=== PATIENT | female | born 1960 | race Caucasian/White ===

== ENCOUNTER → 2016-12-05 | Outpatient (CLI) | payer BC ==
[2016-12-05 10:18] LABS: ALT 37 U/L (9-52); AST 30 U/L (14-36); Alkaline Phosphatase 64 U/L (38-126); Anion Gap 11 mmol/L; Blood Urea Nitrogen 29 mg/dL (7-17); Calcium 9.9 mg/dL (8.4-10.2); Carbon Dioxide 27 mmol/L (22-30); Chloride 104 mmol/L (98-107); Cholesterol 143 mg/dL (<200); Glucose 109 mg/dL (74-99); HDL Cholesterol 34 mg/dL (40-60); Non-African American GFR(MDRD) >60 (>60 ml/min/1.73 sqM); Potassium 4.7 mmol/L (3.5-5.1); Sodium 142 mmol/L (137-145); Total Bilirubin 0.8 mg/dL (0.2-1.3); Total Protein 7.2 g/dL (6.3-8.2); Triglycerides 247 mg/dL (<150)
== END | disposition home or self-care (01) ==
LOC: LABWHC1 08:27
PROVIDERS: ATTEND Internal Medicine Endocrinology, Diabetes & Metabolism
DX: E11.65 Type 2 diabetes mellitus with hyperglycemia (principal); E03.8 Other specified hypothyroidism
CPT/HCPCS: 36415; 80053; 80061; 82043; 84443

== ENCOUNTER 2017-05-25 14:17 | Emergency (ER) | payer BC ==
--- NOTE | 2017-05-25 14:47 | ED ---
General Adult HPI - General Chief complaint: Nausea/Vomiting/Diarrhea Stated complaint: Abd Pain Time Seen by Provider: 05/25/17 14:32 Source: patient, family, RN notes reviewed Mode of arrival: ambulatory Limitations: no limitations - History of Present Illness Initial comments: Chief complaint and history of present illness is a 57-year-old female here with her . He reports reports for the past 3 days she's had diarrhea just running through her. Denies any pain. No nausea no vomiting. - Related Data Home Medications Medication Instructions Recorded Confirmed Calcium Carbonate/Vitamin D3 1 tab PO DAILY 05/25/17 05/25/17 [Calcium 500-Vit D3 200 Tablet] Canagliflozin [Invokana] 300 mg PO DAILY 05/25/17 05/25/17 Fenofibric Acid (Choline) 135 mg PO HS 05/25/17 05/25/17 [Trilipix] Glimepiride [Amaryl] 2 mg PO AC-BRKFST 05/25/17 05/25/17 Insulin Glargine,Hum.rec.anlog 45 unit SQ BID 05/25/17 05/25/17 [Lantus Solostar] Levothyroxine Sodium [Synthroid] 75 mcg PO DAILY 05/25/17 05/25/17 Lisinopril-Hctz 20-25 mg 1 tab PO DAILY 05/25/17 05/25/17 [Zestoretic 20-25] Lutein 20 mg PO DAILY 05/25/17 05/25/17 metFORMIN HCL [metFORMIN HCL ER] 500 mg PO BID 05/25/17 05/25/17 Previous Rx's Medication Instructions Recorded Ciprofloxacin HCl [Cipro] 500 mg PO Q12HR #10 tablet 05/25/17 Allergies Allergy/AdvReac Type Severity Reaction Status Date / Time erythromycin base Allergy Unknown Verified 05/25/17 14:53 influenza virus vaccine, Allergy Rash/Hives Verified 05/25/17 14:53 specific Penicillins Allergy Unknown Verified 05/25/17 14:53 Sulfa (Sulfonamide Allergy Unknown Verified 05/25/17 14:53 Antibiotics) garlic AdvReac Nausea & Verified 05/25/17 14:53 Vomiting & Diarrhea Review of Systems ROS Statement: Those systems with pertinent positive or pertinent negative responses have been documented in the HPI. Review of systems no headache or chest pain or shortness of breath no jugular problems GI problems include very frequent foul-smelling loose stool. No neuro deficits. All systems are reviewed. Past medical problems insulin-dependent diabetes mellitus, hyperlipidemia, hypertension and hypothyroidism. Surgeries include 1 , cholecystectomy, tonsillectomy bilateral carpal tunnel surgery. Family history an uncle with lung cancer. The patient has ALLERGIES to erythromycin base. Also ALLERGIES to influenza virus vaccine. She thinks she may be ALLERGIC to sulfa. States she is ALLERGIC to penicillin though she' s had it without reaction. Also ALLERGIC to garlic. The patient quit smoking 8 years ago denies alcohol use ROS Other: All systems not noted in ROS Statement are negative. Past Medical History Past Medical History: Diabetes Mellitus, Hyperlipidemia, Hypertension, Thyroid Disorder History of Any Multi-Drug Resistant Organisms: None Reported Past Surgical History: Section, Cholecystectomy, Tonsillectomy Additional Past Surgical History / Comment(s): bilateral carpel tunnel Past Psychological History: No Psychological Hx Reported Smoking Status: Never smoker Past Alcohol Use History: None Reported Past Drug Use History: None Reported General Exam - General Exam Comments Initial Comments: General: The patient is awake and alert, in no distress, and does not appear acutely ill. Here with a chief complaint of foul-smelling loose stool for 3 days nonstop. Vital signs temperature 98.4 pulse 102 respiratory rate 18 pulse ox 96 % room air blood pressure 115/74 Eye: Pupils are equal, round and reactive to light, extra-ocular movements are intact ; there is normal conjunctiva bilaterally. No signs of icterus. Ears, nose, mouth and throat: There are moist mucous membranes and no oral lesions. Neck: The neck is supple, there is no tenderness . Cardiovascular: There is a regular rate and rhythm. No murmur, rub or gallop is appreciated. Respiratory: Lungs are clear to auscultation, respirations are non-labored, breath sounds are equal. No wheezes, stridor, rales, or rhonchi. Gastrointestinal: Soft, non-distended, non-tender abdomen without masses or organomegaly noted. There is no rebound or guarding present. No CVA tenderness. Active bowel sounds , runny frequent loose stools, foul-smelling. Back: There is no tenderness to palpation in the midline. There is no obvious deformity. No rashes noted. Musculoskeletal: Normal ROM, no tenderness, Neurological: No complaint of any numbness tingling or balance problems. Skin: No rashes noted. Psychiatric: Cooperative, appropriate mood & affect, Limitations: no limitations Course Vital Signs 05/25/17 05/25/17 05/25/17 14:21 15:24 16:24 Temperature 98.4 F 98.1 F Pulse Rate 102 H 105 H Respiratory 18 18 18 Rate Blood Pressure 115/74 111/69 O2 Sat by Pulse 96 95 Oximetry Medical Decision Making - Medical Decision Making Medical decision-making. The first lab back is stool guaiac which was reported to be positive. Patient's C. diff was negative. The patient did not want an IV ,she was able to keep with oral fluids. She'll be discharged home on Pepto-Bismol and Cipro 500 twice a day for 5 days. advised increase her fluids encouraged to drink Gatorade type preparations. Use strict handling. Call for final lab results concerning the type of diarrhea and infection and she may have had. - Lab Data Lab Results 05/25/17 05/25/17 Range/Units 14:35 14:44 Stool Occult Blood Positive H (Negative) C. difficile (EIA) Intrp Negative (Negative) Disposition Clinical Impression: Infectious diarrhea in adult patient Disposition: HOME SELF-CARE Condition: Stable Instructions: Acute Diarrhea (ED) Additional Instructions: increase fluids. Use Gatorade. Take Cipro 500 twice a day for 5 days. Use Pepto-Bismol. Return emergency room or follow-up with family physician as needed Prescriptions: Ciprofloxacin HCl [Cipro] 500 mg PO Q12HR #10 tablet Referrals: Timbo Vaca DO [Primary Care Provider] - 1-2 days Time of Disposition: 17:13
[2017-05-25] MEDS ORDERED: CIPROFLOXACIN HCL 500 MG TAB PO STA (17:11)
[2017-05-25 17:29] VITALS: BP 117/62; PULSE 101; RESP 16; TEMP 98.2
[2017-05-25] MEDS ORDERED: BISMUTH SUBSALICYLATE 4,192 MG/240 ML BOTTLE PO SCH (17:30)
== END 2017-05-25 17:25 | disposition home or self-care (01) ==
LOC: EC 14:17
DX: A09 Infectious gastroenteritis and colitis, unspecified (principal); E11.9 Type 2 diabetes mellitus without complications; E78.5 Hyperlipidemia, unspecified; I10 Essential (primary) hypertension; E07.9 Disorder of thyroid, unspecified; Z79.4 Long term (current) use of insulin; Z79.899 Other long term (current) drug therapy; Z88.0 Allergy status to penicillin; Z88.1 Allergy status to other antibiotic agents; Z88.2 Allergy status to sulfonamides; Z91.018 Allergy to other foods; Z88.7 Allergy status to serum and vaccine; Z90.49 Acquired absence of other specified parts of digestive tract; Z53.29 Procedure and treatment not carried out because of patient's decision for other reasons
CPT/HCPCS: 36415; 82272; 87045; 87046; 87324; 99284

== ENCOUNTER 2017-05-30 09:21 | Emergency (ER) | payer BC ==
[2017-05-30] MEDS ORDERED: SODIUM CHLORIDE 0.9% 1,000 ML IV STA (09:40)
[2017-05-30] MEDS ORDERED: HYDROmorphone 0.5 MG/0.5 ML SYRINGE IVP STA ×2 (10:26→12:16)
[2017-05-30] MEDS ORDERED: RX INFO: IV CONTRAST WAS GIVEN 1 EACH MISC MISCELLANE PRN (10:26)
[2017-05-30] MEDS ORDERED: ONDANSETRON 4 MG/2 ML VIAL IVP STA (10:26)
[2017-05-30 10:29] LABS: Basophils # (A) 0.1 k/uL (0-0.2); Basophils % (A) 1 %; CH 29.9; CHCM 35.5; Eosinophils # (A) 1.2 k/uL (0-0.7); Eosinophils % (A) 12 %; HCT 45.3 % (34.0-46.0); HDW 2.97; HGB 15.4 gm/dL (11.4-16.0); Luc # (Auto) 0.28; Luc % (Auto) 3; Lymphocytes # (A) 2.3 k/uL (1.0-4.8); Lymphocytes % (A) 22 %; MCH 28.7 pg (25.0-35.0); MCHC 33.9 g/dL (31.0-37.0); MCV 84.5 fL (80.0-100.0); Mean Platelet Volume 7.2; Monocytes # (A) 0.5 k/uL (0-1.0); Monocytes % (A) 5 %; Neutrophils % (A) 58 %; RBC 5.37 m/uL (3.80-5.40); RDW 12.8 % (11.5-15.5); WBC 10.4 k/uL (3.8-10.6); WBC (Perox) 10.09
[2017-05-30 10:36] LABS: Appearance,Urine Turbid (Clear); Bilirubin,Urine Negative (Negative); Glucose,Urine (UA) 4+ (Negative); Ketones,Urine Negative (Negative); Leukocyte Esterase,Urine Moderate (Negative); Mucus,Urine Rare /hpf; Nitrite,Urine Negative (Negative); PH, Urine 5.5 (5.0-8.0); Particle Count 3466; Protein,Urine Negative (Negative); RBC,Urine 4 /hpf (0-5); Specific Gravity,Urine 1.022 (1.001-1.035); Squamous Epithelial Cell,Urine 2 /hpf (0-4); UA Billing (MACRO vs. MICRO) MICRO; Urobilinogen,Urine <2.0 mg/dL (<2.0); WBC,Urine 12 /hpf (0-5)
--- NOTE | 2017-05-30 10:37 | ED ---
Abdominal Pain HPI - General Chief Complaint: Abdominal Pain Stated Complaint: LRQ pain radiating to back Time Seen by Provider: 05/30/17 09:39 Source: patient, RN notes reviewed Mode of arrival: ambulatory Limitations: no limitations - History of Present Illness Initial Comments: This a 57-year-old female presents emergency department chief complaint right- sided abdominal pain. Patient states that she's been here several times for this. Patient states his been dealing with diarrhea for approximately 9-10 days. Patient states that she was admitted to the hospital the able to perform some stool studies and give her Questran. Patient states that her stool is slowing down and states that she is nonverbal worsening pain in the right side. She states the pain is unbearable worsen she's ever experience. Patient states she's had a prior cholecystectomy 9 years ago. Patient denies any dysuria hematuria. Patient states that she's had no melena or hematochezia. Denies any nausea vomiting diarrhea constipation. - Related Data Home Medications Medication Instructions Recorded Confirmed Calcium Carbonate/Vitamin D3 1 tab PO DAILY 05/25/17 05/30/17 [Calcium 500-Vit D3 200 Tablet] Canagliflozin [Invokana] 300 mg PO QAM 05/25/17 05/30/17 Fenofibric Acid (Choline) 135 mg PO HS 05/25/17 05/30/17 [Trilipix] Insulin Glargine,Hum.rec.anlog 35 unit SQ HS 05/25/17 05/30/17 [Lantus Solostar] Levothyroxine Sodium [Synthroid] 75 mcg PO HS 05/25/17 05/30/17 Lisinopril-Hctz 20-25 mg 1 tab PO DAILY 05/25/17 05/30/17 [Zestoretic 20-25] Lutein 20 mg PO DAILY 05/25/17 05/30/17 metFORMIN HCL [metFORMIN HCL ER] 500 mg PO QAM 05/25/17 05/30/17 Glimepiride [Amaryl] 2 mg PO AC-BRKFST 05/30/17 05/30/17 Previous Rx's Medication Instructions Recorded Ciprofloxacin HCl [Cipro] 500 mg PO Q12HR #10 tablet 05/25/17 Cholestyramine (with Sugar) 4 gm PO BID #30 packet 05/28/17 [Questran] Peg 3350-Na Sulf,Bicarb,Cl/KCl 4,000 ml PO DIRECTED #1 bottle 05/28/17 [Golytely Lavage] traMADol HCl [Ultram] 50 mg PO Q6H PRN #20 tab 05/30/17 Allergies Allergy/AdvReac Type Severity Reaction Status Date / Time erythromycin base Allergy Unknown Verified 05/30/17 09:44 influenza virus vaccine, Allergy Rash/Hives Verified 05/30/17 09:44 specific Penicillins Allergy Unknown Verified 05/30/17 09:44 Sulfa (Sulfonamide Allergy Unknown Verified 05/30/17 09:44 Antibiotics) garlic AdvReac Nausea & Verified 05/30/17 09:44 Vomiting & Diarrhea Review of Systems ROS Statement: Those systems with pertinent positive or pertinent negative responses have been documented in the HPI. ROS Other: All systems not noted in ROS Statement are negative. Past Medical History Past Medical History: Diabetes Mellitus, Hyperlipidemia, Hypertension, Thyroid Disorder Additional Past Medical History / Comment(s): pancreatitis History of Any Multi-Drug Resistant Organisms: None Reported Past Surgical History: Section, Cholecystectomy, Tonsillectomy Additional Past Surgical History / Comment(s): bilateral carpel tunnel Past Anesthesia/Blood Transfusion Reactions: No Reported Reaction Past Psychological History: No Psychological Hx Reported Smoking Status: Former smoker Past Alcohol Use History: None Reported Past Drug Use History: None Reported - Past Family History Father Family Medical History: Congestive Heart Failure (CHF), Diabetes Mellitus Additional Family Medical History / Comment(s): Father has history of diabetes type 2 and hypertension. Mother Family Medical History: Hyperlipidemia, Hypertension Additional Family Medical History / Comment(s): Mother has history of diabetes mellitus type 2 and hyperlipidemia. Brother(s) Additional Family Medical History / Comment(s): Patient is a total of 3 brothers all tree diabetic. 2 brothers are lactose intolerant. Patient does not have any sisters. Patient has one daughter status post cholecystectomy. General Exam Limitations: no limitations General appearance: alert, in no apparent distress Neck exam: Present: normal inspection. Absent: tenderness, meningismus, lymphadenopathy Respiratory exam: Present: normal lung sounds bilaterally. Absent: respiratory distress, wheezes, rales, rhonchi, stridor Cardiovascular Exam: Present: regular rate, normal rhythm, normal heart sounds. Absent: systolic murmur, diastolic murmur, rubs, gallop, clicks GI/Abdominal exam: Present: soft, tenderness (Mild right lower quadrant tenderness), normal bowel sounds. Absent: distended, guarding, rebound, rigid Back exam: Absent: CVA tenderness (R), CVA tenderness (L) Skin exam: Present: warm, dry, intact, normal color. Absent: rash Course Vital Signs 05/30/17 05/30/17 09:25 10:39 Temperature 98.4 F Pulse Rate 90 85 Respiratory 20 16 Rate Blood Pressure 159/69 107/66 O2 Sat by Pulse 98 97 Oximetry Medical Decision Making - Medical Decision Making 57-year-old female presented emergency from her for recheck abdominal discomfort. Patient has evidence of colitis on CT. Patient lab work is essentially unremarkable other than mild transaminitis. Patient is scheduled for colonoscopy tomorrow. We discussed pain control and having her procedure done tomorrow. Patient feels comfortable with this plan she is return for any worsening symptoms today. - Lab Data Result diagrams: 05/30/17 10:05 05/30/17 10:05 Lab Results 05/30/17 05/30/17 05/30/17 Range/Units 10:05 10:05 10:05 WBC 10.4 (3.8-10.6) k/uL RBC 5.37 (3.80-5.40) m/uL Hgb 15.4 (11.4-16.0) gm/dL Hct 45.3 (34.0-46.0) % MCV 84.5 (80.0-100.0) fL MCH 28.7 (25.0-35.0) pg MCHC 33.9 (31.0-37.0) g/dL RDW 12.8 (11.5-15.5) % Plt Count 292 (150-450) k/uL Neutrophils % 58 % Lymphocytes % 22 % Monocytes % 5 % Eosinophils % 12 % Basophils % 1 % Neutrophils # 6.0 (1.3-7.7) k/uL Lymphocytes # 2.3 (1.0-4.8) k/uL Monocytes # 0.5 (0-1.0) k/uL Eosinophils # 1.2 H (0-0.7) k/uL Basophils # 0.1 (0-0.2) k/uL PT (9.0-12.0) sec INR (<1.2) APTT (22.0-30.0) sec Sodium 141 (137-145) mmol/L Potassium 4.1 (3.5-5.1) mmol/L Chloride 104 (98-107) mmol/L Carbon Dioxide 26 (22-30) mmol/L Anion Gap 11 mmol/L BUN 15 (7-17) mg/dL Creatinine 0.81 (0.52-1.04) mg/dL Est GFR (MDRD) Af Amer >60 (>60 ml/min/1.73 sqM) Est GFR (MDRD) Non-Af >60 (>60 ml/min/1.73 sqM) Glucose 132 H (74-99) mg/dL Plasma Lactic Acid Josr 1.0 (0.7-2.0) mmol/L Calcium 10.7 H (8.4-10.2) mg/dL Total Bilirubin 0.7 (0.2-1.3) mg/dL AST 63 H (14-36) U/L ALT 53 H (9-52) U/L Alkaline Phosphatase 72 (38-126) U/L Total Protein 7.3 (6.3-8.2) g/dL Albumin 4.5 (3.5-5.0) g/dL Amylase 79 (30-110) U/L Lipase 133 (23-300) U/L Urine Color Urine Appearance (Clear) Urine pH (5.0-8.0) Ur Specific Montague (1.001-1.035) Urine Protein (Negative) Urine Glucose (UA) (Negative) Urine Ketones (Negative) Urine Blood (Negative) Urine Nitrite (Negative) Urine Bilirubin (Negative) Urine Urobilinogen (<2.0) mg/dL Ur Leukocyte Esterase (Negative) Urine RBC (0-5) /hpf Urine WBC (0-5) /hpf Ur Squamous Epith Cells (0-4) /hpf Urine Mucus (None) /hpf 05/30/17 05/30/17 Range/Units 10:05 10:05 WBC (3.8-10.6) k/uL RBC (3.80-5.40) m/uL Hgb (11.4-16.0) gm/dL Hct (34.0-46.0) % MCV (80.0-100.0) fL MCH (25.0-35.0) pg MCHC (31.0-37.0) g/dL RDW (11.5-15.5) % Plt Count (150-450) k/uL Neutrophils % % Lymphocytes % % Monocytes % % Eosinophils % % Basophils % % Neutrophils # (1.3-7.7) k/uL Lymphocytes # (1.0-4.8) k/uL Monocytes # (0-1.0) k/uL Eosinophils # (0-0.7) k/uL Basophils # (0-0.2) k/uL PT 11.1 (9.0-12.0) sec INR 1.1 (<1.2) APTT 21.5 L (22.0-30.0) sec Sodium (137-145) mmol/L Potassium (3.5-5.1) mmol/L Chloride (98-107) mmol/L Carbon Dioxide (22-30) mmol/L Anion Gap mmol/L BUN (7-17) mg/dL Creatinine (0.52-1.04) mg/dL Est GFR (MDRD) Af Amer (>60 ml/min/1.73 sqM) Est GFR (MDRD) Non-Af (>60 ml/min/1.73 sqM) Glucose (74-99) mg/dL Plasma Lactic Acid Josr (0.7-2.0) mmol/L Calcium (8.4-10.2) mg/dL Total Bilirubin (0.2-1.3) mg/dL AST (14-36) U/L ALT (9-52) U/L Alkaline Phosphatase (38-126) U/L Total Protein (6.3-8.2) g/dL Albumin (3.5-5.0) g/dL Amylase (30-110) U/L Lipase (23-300) U/L Urine Color Yellow Urine Appearance Turbid H (Clear) Urine pH 5.5 (5.0-8.0) Ur Specific [place] 1.022 (1.001-1.035) Urine Protein Negative (Negative) Urine Glucose (UA) 4+ H (Negative) Urine Ketones Negative (Negative) Urine Blood Negative (Negative) Urine Nitrite Negative (Negative) Urine Bilirubin Negative (Negative) Urine Urobilinogen <2.0 (<2.0) mg/dL Ur Leukocyte Esterase Moderate H (Negative) Urine RBC 4 (0-5) /hpf Urine WBC 12 H (0-5) /hpf Ur Squamous Epith Cells 2 (0-4) /hpf Urine Mucus Rare H (None) /hpf Disposition Clinical Impression: Colitis Disposition: HOME SELF-CARE Condition: Stable Instructions: Colitis (ED) Additional Instructions: Please return to the Emergency Department if symptoms worsen or any other concerns. Prescriptions: traMADol HCl [Ultram] 50 mg PO Q6H PRN #20 tab PRN Reason: Pain Referrals: Timbo Vaca DO [Primary Care Provider] - 1-2 days Time of Disposition: 12:15
[2017-05-30 10:45] LABS: ALT 53 U/L (9-52); AST 63 U/L (14-36); Alkaline Phosphatase 72 U/L (38-126); Amylase 79 U/L (30-110); Anion Gap 11 mmol/L; Blood Urea Nitrogen 15 mg/dL (7-17); Calcium 10.7 mg/dL (8.4-10.2); Carbon Dioxide 26 mmol/L (22-30); Chloride 104 mmol/L (98-107); Glucose 132 mg/dL (74-99); INR 1.1 (<1.2); Non-African American GFR(MDRD) >60 (>60 ml/min/1.73 sqM); Potassium 4.1 mmol/L (3.5-5.1); Prothrombin Time 11.1 sec (9.0-12.0); Sodium 141 mmol/L (137-145); Total Bilirubin 0.7 mg/dL (0.2-1.3); Total Protein 7.3 g/dL (6.3-8.2)
[2017-05-30 11:19] LABS: Partial Thromboplastin Time 21.5 sec (22.0-30.0)
--- NOTE | 2017-05-30 11:40 | CT ---
EXAMINATION TYPE: CT abdomen pelvis w con DATE OF EXAM: 05/30/2017 HISTORY: Right lower quadrant pain, right flank pain, diverticulitis. History of endometrial cancer w ith last chemotherapy [address] DLP: 1217mGycm Automated Exposure Control for Dose Reduction was Utilized. CONTRAST: CT scan of the abdomen and pelvis is performed without oral but with IV Contrast, patient injected wi th 100 mL of Omnipaque 300. COMPARISON: CT abdomen and pelvis 3 days ago and older study August 12, 2015. FINDINGS: LUNG BASES: No significant abnormality is appreciated. LIVER/GB: Cholecystectomy clips are redemonstrated. PANCREAS: No significant abnormality is seen. SPLEEN: No significant abnormality is seen. ADRENALS: No significant abnormality is seen. KIDNEYS: No renal stones or hydronephrosis is evident bilaterally. Symmetric excretion from both kidn eys is seen. BOWEL: Evaluation bowel is slightly suboptimal secondary to lack of enteric contrast. There is no bianca picious small or large bowel dilatation identified. Normal-appearing appendix is seen inferiorly from cecum in the right lower quadrant. There is persistent area of mild wall thickening proximal transve rse colon seen best coronal image 24 which area of colitis cannot be excluded. There is mild to moder ate wall thickening diffusely in colon from splenic flexure up to level of rectum into redundant sigm oid colon, this could be product of poor distention but a new mild colitis at this level cannot be ex cluded. UTERUS/ADNEXA: Heterogeneous lobulated appearance to anteverted uterus is redemonstrated. LYMPH NODES: No greater than 1cm abdominal or pelvic lymph nodes are appreciated. OSSEOUS STRUCTURES: Mild multilevel spurring throughout the spine is present. OTHER: No significant additional abnormality is seen. IMPRESSION: Cannot exclude mild colitis proximal right transverse colon and distally involving left a nd sigmoid colon, correlate clinically. Otherwise no significant finding is seen to account for patie nt's symptoms. Appendix is within normal limits. No obstructing stones are seen. No bowel obstruction is present.
[2017-05-30 12:27] VITALS: BP 121/57; PULSE 88; RESP 20; TEMP 98.2
== END 2017-05-30 12:25 | disposition home or self-care (01) ==
LOC: EC 09:21
DX: K52.9 Noninfective gastroenteritis and colitis, unspecified (principal); E11.9 Type 2 diabetes mellitus without complications; E78.5 Hyperlipidemia, unspecified; I10 Essential (primary) hypertension; E07.9 Disorder of thyroid, unspecified; Z53.29 Procedure and treatment not carried out because of patient's decision for other reasons; Z87.891 Personal history of nicotine dependence; Z79.4 Long term (current) use of insulin; Z79.899 Other long term (current) drug therapy; Z88.0 Allergy status to penicillin; Z88.1 Allergy status to other antibiotic agents; Z88.7 Allergy status to serum and vaccine; Z88.2 Allergy status to sulfonamides; Z91.018 Allergy to other foods; Z90.49 Acquired absence of other specified parts of digestive tract
CPT/HCPCS: 36415; 74177; 80053; 81001; 82150; 83605; 83690; 85025; 85610; 85730; 87040; 96361; 96374; 96375; 99284

== ENCOUNTER → 2018-01-04 | Outpatient (CLI) | payer BC ==
[2018-01-04 09:28] LABS: ALT 38 U/L (9-52); AST 30 U/L (14-36); Albumin 4.4 g/dL (3.5-5.0); Alkaline Phosphatase 66 U/L (38-126); Anion Gap 12 mmol/L; Blood Urea Nitrogen 26 mg/dL (7-17); Calcium 9.9 mg/dL (8.4-10.2); Carbon Dioxide 26 mmol/L (22-30); Chloride 104 mmol/L (98-107); Cholesterol 130 mg/dL (<200); Glucose 127 mg/dL (74-99); HDL Cholesterol 32 mg/dL (40-60); LDL Cholesterol,Calculated 55 mg/dL (0-99); Sodium 142 mmol/L (137-145); Total Bilirubin 0.4 mg/dL (0.2-1.3); Total Protein 6.7 g/dL (6.3-8.2); Triglycerides 213 mg/dL (<150)
[2018-01-04 20:46] LABS: Hemoglobin A1C 7.5 % (4.0-6.0)
== END | disposition home or self-care (01) ==
LOC: LABWHC1 08:57
PROVIDERS: ATTEND Internal Medicine Endocrinology, Diabetes & Metabolism
DX: E11.65 Type 2 diabetes mellitus with hyperglycemia (principal); E03.8 Other specified hypothyroidism
CPT/HCPCS: 36415; 80053; 80061; 82043; 82570; 82607; 83036; 84443

== ENCOUNTER → 2018-10-27 | Outpatient (CLI) | payer BC ==
[2018-10-27 11:32] LABS: Albumin 4.6 g/dL (3.80-4.90); Albumin/Globulin Ratio 2.56 (1.60-3.17); Anion Gap 8.1 mmol/L (4.00-12.00); Calcium 9.6 mg/dL (8.7-10.3); Carbon Dioxide 24.9 mmol/L (21.6-31.8); Globulin 1.8 g/dL (1.6-3.3); LDL Cholesterol,Calculated 32.6 mg/dL (0.0-131.0); Potassium 4.7 mmol/L (3.5-5.5); Total Bilirubin 0.6 mg/dL (0.3-1.2); Total Protein 6.4 g/dL (6.2-8.2); VLDL Calculation 56.4 mg/dL (5.00-40.00)
== END ==
LOC: LABWHC1 07:37
PROVIDERS: ATTEND Internal Medicine Endocrinology, Diabetes & Metabolism
DX: E11.65 Type 2 diabetes mellitus with hyperglycemia (principal)
CPT/HCPCS: 36415; 80053; 80061; 82043; 82570; 83036; 84443

== ENCOUNTER → 2019-07-11 | Outpatient (CLI) | payer BC ==
[2019-07-11 17:32] LABS: African American GFR (CKD) 109.9 (60.0-200.0); Albumin 4.6 g/dL (3.80-4.90); Albumin/Globulin Ratio 2.3 (1.60-3.17); Anion Gap 7.4 mmol/L (4.00-12.00); BUN/Creat Ratio 48.57 Ratio (12.00-20.00); Calcium 9.9 mg/dL (8.7-10.3); Carbon Dioxide 27.6 mmol/L (21.6-31.8); Chol/HDL Ratio 3.71; LDL Cholesterol,Calculated 62.4 mg/dL (0.0-131.0); Non-African American GFR(CKD) 94.8 (60.0-200.0); Potassium 4.7 mmol/L (3.5-5.5); Total Bilirubin 0.7 mg/dL (0.3-1.2); Total Protein 6.6 g/dL (6.2-8.2); VLDL Calculation 32.6 mg/dL (5.00-40.00)
[2019-07-11 18:17] LABS: Hemoglobin A1C 7.7 % (4.0-6.0)
[2019-07-11 19:26] LABS: Microalbumin Creatinine Ratio <30 mg/g Creat (0-30); Urine Creatinine 31.7 mg/dL
== END ==
LOC: LABWHC1 09:09
PROVIDERS: ATTEND Internal Medicine Endocrinology, Diabetes & Metabolism
DX: E11.65 Type 2 diabetes mellitus with hyperglycemia (principal)
CPT/HCPCS: 36415; 80053; 80061; 82043; 82570; 83036; 84443

== ENCOUNTER → 2019-08-08 | Outpatient (CLI) | payer BC ==
--- NOTE | 2019-08-08 18:41 | XR ---
EXAMINATION TYPE: XR cervical spine comp DATE OF EXAM: 08/08/2019 TECHNIQUE: Frontal, lateral, oblique, swimmers, and open mouth view of the cervical spine are obtaine d. HISTORY: M47.812 COMPARISON: None FINDINGS: There is straightening of the usual cervical lordosis. The cervical spine is visualized in its entirety from C1 thru the top of C7 level, it is satisfactory in alignment without evidence of ac huslia fracture or dislocation. The pre-vertebral soft tissue appears within normal limits. The C1-C2 articulation is within normal limits on the open mouth view. Multilevel uncovertebral hypertrophy and small anterior osteophytes are seen. Oblique images demonstrate mild neural foraminal narrowing at C 4-C5 on the left. IMPRESSION: 1. No acute fracture or dislocation is seen in the cervical spine. 2. Mild to moderate degenerative disc disease of the cervical spine. 3. Straightening of the usual cervical lordosis that may be on the basis of muscular strain/spasm or patient positioning.
--- NOTE | 2019-08-08 18:44 | XR ---
EXAMINATION TYPE: XR shoulder complete LT DATE OF EXAM: 08/08/2019 CLINICAL HISTORY: Left shoulder pain and neck pain with limited range of motion TECHNIQUE: Three views of the left shoulder are obtained. COMPARISON: None. FINDINGS: There is no acute fracture/dislocation evident in the left shoulder. The acromioclavicula r and glenohumeral joint spaces appear aligned. Small marginal osteophytes are seen of the acromiocl avicular joint. The visualized ribs are intact and unremarkable. IMPRESSION: There is no acute fracture or dislocation in the left shoulder. Mild acromioclavicular a rthropathy.
== END | disposition home or self-care (01) ==
LOC: RADXRMAIN 09:47
DX: M50.30 Other cervical disc degeneration, unspecified cervical region (principal); M12.812 Other specific arthropathies, not elsewhere classified, left shoulder
CPT/HCPCS: 72050

== ENCOUNTER → 2020-02-24 | Outpatient (CLI) | payer BC ==
[2020-02-24 16:39] LABS: African American GFR (CKD) 92.9 (60.0-200.0); Albumin 4.4 g/dL (3.80-4.90); Albumin/Globulin Ratio 2.2 (1.60-3.17); Anion Gap 6.9 mmol/L (4.00-12.00); Calcium 9.6 mg/dL (8.7-10.3); Carbon Dioxide 29.1 mmol/L (21.6-31.8); Chol/HDL Ratio 3.72; LDL Cholesterol,Calculated 93.4 mg/dL (0.0-131.0); Non-African American GFR(CKD) 80.1 (60.0-200.0); Potassium 4.7 mmol/L (3.5-5.5); Total Bilirubin 0.8 mg/dL (0.3-1.2); Total Protein 6.4 g/dL (6.2-8.2); VLDL Calculation 23.6 mg/dL (5.00-40.00)
[2020-02-24 17:57] LABS: Microalbumin Creatinine Ratio <30 mg/g Creat (0-30); Urine Creatinine 40.3 mg/dL
== END | disposition home or self-care (01) ==
LOC: LABWHC1 08:05
PROVIDERS: ATTEND Internal Medicine Endocrinology, Diabetes & Metabolism
DX: E11.65 Type 2 diabetes mellitus with hyperglycemia (principal)
CPT/HCPCS: 36415; 80053; 80061; 82043; 82570; 83036; 84443

== ENCOUNTER → 2020-03-21 | Outpatient (CLI) | payer BC ==
--- NOTE | 2020-03-21 18:48 | MR ---
EXAMINATION TYPE: MR cervical spine wo con DATE OF EXAM: 03/21/2020 COMPARISON: None HISTORY: Radiculopathy, neck pain Multiplanar multiecho imaging of the cervical spine was performed with no contrast. Cervical vertebra have normal alignment. There is slight decreased signal in the disks throughout the cervical spine. There is slight narrowing of the disc spaces at C4-5 C5-6. There is no compression f racture. Cervical spinal cord has normal signal pattern. There is no edema. There is no spinal stenos is. Brainstem is intact. There is no cervical paraspinal mass. I see no bony destructive process. The re is no evidence of any significant cervical disc herniation. IMPRESSION: Minor degenerative disc changes at C4-5 and C5-6. No fracture. No spinal stenosis.
== END | disposition home or self-care (01) ==
LOC: RADMRIMAIN 07:12
PROVIDERS: ATTEND Family Medicine
DX: M47.22 Other spondylosis with radiculopathy, cervical region (principal)
CPT/HCPCS: 72141

== ENCOUNTER → 2020-11-17 | Outpatient (CLI) | payer BC ==
[2020-11-17 15:55] LABS: Urine Creatinine 39.7 mg/dL
[2020-11-17 16:32] LABS: African American GFR (CKD) 92.9 (60.0-200.0); Albumin 4.5 g/dL (3.80-4.90); Albumin/Globulin Ratio 2.05 (1.60-3.17); Anion Gap 11.2 mmol/L (4.00-12.00); BUN/Creat Ratio 36.25 Ratio (12.00-20.00); Carbon Dioxide 25.8 mmol/L (21.6-31.8); Chol/HDL Ratio 4.63; Globulin 2.2 g/dL (1.6-3.3); Non-African American GFR(CKD) 80.1 (60.0-200.0); Potassium 4.6 mmol/L (3.5-5.5); Total Bilirubin 0.7 mg/dL (0.2-1.2); Total Protein 6.7 g/dL (6.2-8.2)
[2020-11-17 18:56] LABS: Hemoglobin A1C 6.6 % (4.0-6.0)
== END | disposition home or self-care (01) ==
LOC: LABWHC1 08:45
PROVIDERS: ATTEND Internal Medicine Endocrinology, Diabetes & Metabolism
DX: E11.65 Type 2 diabetes mellitus with hyperglycemia (principal)
CPT/HCPCS: 36415; 80053; 80061; 82043; 82570; 83036; 84443

== ENCOUNTER 2020-12-28 09:44 | Emergency (ER) | payer BC ==
[2020-12-28 09:49] VITALS: RESP 18
[2020-12-28] MEDS ORDERED: MORPHINE SULFATE 4 MG/ML SYRINGE IM STA (10:12)
--- NOTE | 2020-12-28 10:17 | ED ---
General Adult HPI - General Chief complaint: Fall Stated complaint: Fall/Head Injury Time Seen by Provider: 12/28/20 09:50 Source: patient, RN notes reviewed Mode of arrival: ambulatory Limitations: no limitations - History of Present Illness Initial comments: 60-year-old female with a past medical history of diabetes mellitus, hyperlipidemia, hypertension presents to the emergency room for chief complaint of fall. Patient had her eyes dilated this morning at the doctor's office. She went home and was carrying laundry when she tripped and fell. Patient hit her right side of her face against the edge of a countertop. She states her nose was bleeding and hurts. Patient state her teeth also hurt. She does admit to a slight headache. Patient denies loss of consciousness. Denies neck or chest pain. Patient is up-to-date on tetanus as of 2 years ago.Patient has no other complaints at this time including shortness of breath, chest pain, abdominal pain, nausea or vomiting, or visual changes. - Related Data Home Medications Medication Instructions Recorded Confirmed Calcium Carbonate/Vitamin D3 1 tab PO DAILY 05/25/17 12/28/20 [Calcium 500-Vit D3 5 Mcg (200 Iu)] Canagliflozin [Invokana] 300 mg PO QAM 05/25/17 12/28/20 Fenofibric Acid (Choline) 135 mg PO HS 05/25/17 12/28/20 [Trilipix] Insulin Glargine,Hum.rec.anlog 40 unit SQ BID 05/25/17 12/28/20 [Lantus Solostar] Levothyroxine Sodium [Synthroid] 75 mcg PO HS 05/25/17 12/28/20 Lisinopril-Hctz 20-25 mg 1 tab PO DAILY 05/25/17 12/28/20 [Zestoretic 20-25] Lutein 20 mg PO DAILY 05/25/17 12/28/20 metFORMIN HCL [metFORMIN HCL ER] 500 mg PO BID 05/25/17 12/28/20 Glimepiride [Amaryl] 2 mg PO AC-BRKFST 05/30/17 12/28/20 Citalopram Hydrobromide [CeleXA] 10 mg PO DAILY 12/28/20 12/28/20 Latanoprost/Pf [Latanoprost 0.005% 1 drop BOTH EYES HS 12/28/20 12/28/20 Eye Drop] Semaglutide [Rybelsus] 7 mg PO DAILY 12/28/20 12/28/20 Previous Rx's Medication Instructions Recorded Cephalexin [Keflex] 500 mg PO Q6HR 10 Days #40 cap 12/28/20 HYDROcodone/APAP 5-325MG [Shelley 1 tab PO Q6HR PRN #12 tab 12/28/20 5-325] Allergies Allergy/AdvReac Type Severity Reaction Status Date / Time egg Allergy Unknown Verified 12/28/20 11:59 erythromycin base Allergy Unknown Verified 12/28/20 11:59 influenza virus vaccine, Allergy Rash/Hives Verified 12/28/20 11:59 specific Milk Containing Products Allergy Verified 12/28/20 11:59 [Dairy] Penicillins Allergy Unknown Verified 12/28/20 11:59 Sulfa (Sulfonamide Allergy Unknown Verified 12/28/20 11:59 Antibiotics) garlic AdvReac Nausea & Verified 12/28/20 11:59 Vomiting & Diarrhea Review of Systems ROS Statement: Those systems with pertinent positive or pertinent negative responses have been documented in the HPI. ROS Other: All systems not noted in ROS Statement are negative. Past Medical History Past Medical History: Diabetes Mellitus, Hyperlipidemia, Hypertension, Thyroid Disorder Additional Past Medical History / Comment(s): pancreatitis History of Any Multi-Drug Resistant Organisms: None Reported Past Surgical History: Section, Cholecystectomy, Tonsillectomy Additional Past Surgical History / Comment(s): bilateral carpel tunnel Past Anesthesia/Blood Transfusion Reactions: No Reported Reaction Past Psychological History: No Psychological Hx Reported Smoking Status: Never smoker Past Alcohol Use History: None Reported Past Drug Use History: Marijuana - Past Family History Father Family Medical History: Congestive Heart Failure (CHF), Diabetes Mellitus Additional Family Medical History / Comment(s): Father has history of diabetes type 2 and hypertension. Mother Family Medical History: Hyperlipidemia, Hypertension Additional Family Medical History / Comment(s): Mother has history of diabetes mellitus type 2 and hyperlipidemia. Brother(s) Additional Family Medical History / Comment(s): Patient is a total of 3 brothers all tree diabetic. 2 brothers are lactose intolerant. Patient does not have any sisters. Patient has one daughter status post cholecystectomy. General Exam Limitations: no limitations General appearance: alert, in no apparent distress Head exam: Present: atraumatic, normocephalic, normal inspection Eye exam: Present: normal appearance, PERRL, EOMI. Absent: scleral icterus, conjunctival injection, periorbital swelling, periorbital tenderness (No periorbital tenderness or swelling.) ENT exam: Present: normal oropharynx (No until fractures or bleeding identified), normal external ear exam, other (Patient has edema of the right maxillary/zygomatic area with superficial abrasion. Minimal edema of the nasal bridge with minimal tenderness. There is no active bleeding from the nose. No septal hematoma.) Neck exam: Present: normal inspection, full ROM. Absent: tenderness, meningismus, lymphadenopathy Respiratory exam: Present: normal lung sounds bilaterally. Absent: respiratory distress, wheezes, rales, rhonchi, stridor Cardiovascular Exam: Present: regular rate, normal rhythm, normal heart sounds. Absent: systolic murmur, diastolic murmur, rubs, gallop, clicks GI/Abdominal exam: Present: soft, normal bowel sounds. Absent: distended, tenderness, guarding, rebound, rigid Extremities exam: Present: other (Moving all extremities. Ambulatory.) Course Vital Signs 12/28/20 09:46 Temperature 98 F Pulse Rate 90 Respiratory 18 Rate Blood Pressure 141/79 O2 Sat by Pulse 98 Oximetry Medical Decision Making - Medical Decision Making vitals are stable. Patient presents with mild ecchymosis to the right maxillary area as well as a superficial laceration. Tenderness noted to the nasal bridge however no septal hematoma. EOMI. CT brain and C-spine unremarkable. Nasal fractures noted on CT face. CT face shows fracture of the greater wing of sphenoid as well as the posterior lateral right maxillary wall and anterior superior right maxillary wall. Subcutaneous emphysema inferior to the orbit. This is likely from the sinuses. Dr. Gonzalez evaluated patient and discussed the case with Dr. Carreno who was production maintenance mechanic for ENT. Recommends discharge home with antibiotics and pain medication. Will see her in the office. Discussed keeping had elevated and not blowing nose. Discussed following up as it is possible. She will return here for any worsening symptoms. Steri-Strips applied to small facial abrasion. Disposition Clinical Impression: Fracture of sphenoid bone, Nasal bone fractures, Maxillary fracture Disposition: HOME SELF-CARE Condition: Good Instructions (If sedation given, give patient instructions): Nasal Fracture (ED), Facial Fracture (ED) Additional Instructions: Please take Shelley as seen her for pain. Take antibiotic as directed. Follow up with ENT by calling today for the earliest appointment. Sleep with head sitting up and do not blow your nose. Return to the emergency room for any worsening symptoms. Prescriptions: Cephalexin [Keflex] 500 mg PO Q6HR 10 Days #40 cap HYDROcodone/APAP 5-325MG [Shelley 5-325] 1 tab PO Q6HR PRN #12 tab PRN Reason: Pain Is patient prescribed a controlled substance at d/c from ED?: No Referrals: Timbo Vaca DO [Primary Care Provider] - 1-2 days Harvey Carreno MD [STAFF PHYSICIAN] - 1-2 days Time of Disposition: 12:32
--- NOTE | 2020-12-28 11:24 | CT ---
EXAMINATION TYPE: CT brain [place] con DATE OF EXAM: 12/28/2020 COMPARISON: None HISTORY: Fall, caught corner of Rt eye on a speaker CT DLP: 1073 mGycm, Automated exposure control for dose reduction was used. CONTRAST: Patient injected with 0 mL of Isovue 300. CT of the brain is performed utilizing 3 mm thick sections through the posterior fossa and 3 mm thick sections through the remaining calvarium. Study is performed within 24 hours of arrival to the hospital. No abnormal hyperdensity is present to suggest an acute intracranial hemorrhage. No mass lesion is evident. No acute infarcts are evident. Ventricles and sulci are appropriate for the patient age. Small amount of mucosal thickening is within scattered ethmoid air cells. Small retention cysts withi n the right maxillary sinus. Nasal bone fractures are evident. In the coronal plane a fracture throug h the superior lateral right maxillary wall is evident. Subcutaneous emphysema is within the anterior infraorbital region on the right. IMPRESSIONS: 1. Normal CT brain. 2. Nasal bone fractures and right lateral maxillary wall fracture. 3. Subcutaneous emphysema right infraorbital region. CT cervical spine. COMPARISON: None CT of the cervical spine is performed in the axial plane at 2 mm thick sections. Reconstructed image s in the coronal, and sagittal plane are reviewed on the computer. No acute fractures are evident. Vertebral body alignment is normal. Disc heights are preserved. Vertebral body heights are preserved. No spinal canal stenosis is evident. Facet hypertrophy is present C2-C3 on the left with mild foraminal narrowing. Facet hypertrophy is pr esent C4-5 on the left with moderate foraminal narrowing. Facet hypertrophy is present C7-T1 without foraminal narrowing. IMPRESSIONS: 1. Facet hypertrophy along the left cervical spine contributing to some mild foraminal narrowing disc ussed above. 2. No acute osseous abnormality.
--- NOTE | 2020-12-28 11:29 | CT ---
EXAMINATION TYPE: CT facial bones wo con DATE OF EXAM: 12/28/2020 COMPARISON: None HISTORY: Fall, caught corner of Rt eye on a speaker CT DLP: 1073 mGycm CONTRAST: 0 mL of Isovue 300 The paranasal sinuses are examined in the axial plane at 2 mm thick sections. Reconstructed images i n the coronal plane were obtained. There is dental amalgam scatter artifact. Nasal bone fractures are present. There is some mild displacement towards the left. There is a fractu re of the greater wing of the sphenoid on the right. Posterior lateral maxillary wall fracture is robel dent. Zygomatic arches intact. Medial wall of the orbit is intact. No displaced orbital floor fractur es evident. Note is made of a subtle lateral maxillary wall fracture better visualized on the reconst ructed CT brain. Mucosal thickening is seen in the bilateral maxillary sinuses. Small retention cysts within the poste rior lateral right maxillary sinus. Mucosal thickening is seen within the ethmoid air cells. The eth moid air cells are clear. The sphenoid sinuses are clear. The frontal sinuses are clear. The septum is evaluated. There is septal deviation to the right. There is obstruction of the right ostiomeatal unit. Left ostiomeatal unit is patent. Subcutaneous emphysema is anterior to the left maxillary sinus IMPRESSIONS: 1. Nasal bone fractures. 2. Fracture of the greater wing of sphenoid, posterior lateral right maxillary wall and anterior supe rior right maxillary wall. 3. Subcutaneous emphysema inferior to the orbit
[2020-12-28 12:49] VITALS: BP 114/62; PULSE 88; TEMP 98.9
== END 2020-12-28 12:45 | disposition home or self-care (01) ==
LOC: EC 09:44
DX: S02.2XXA Fracture of nasal bones, initial encounter for closed fracture (principal); S02.19XA Other fracture of base of skull, initial encounter for closed fracture; S02.40CA Maxillary fracture, right side, initial encounter for closed fracture; E11.9 Type 2 diabetes mellitus without complications; I10 Essential (primary) hypertension; E78.5 Hyperlipidemia, unspecified; F12.90 Cannabis use, unspecified, uncomplicated; Z79.4 Long term (current) use of insulin; Z79.890 Hormone replacement therapy; Z79.891 Long term (current) use of opiate analgesic; Z79.899 Other long term (current) drug therapy; Z88.0 Allergy status to penicillin; Z88.2 Allergy status to sulfonamides; Z88.1 Allergy status to other antibiotic agents; Z83.3 Family history of diabetes mellitus; Z82.49 Family history of ischemic heart disease and other diseases of the circulatory system; W01.198A Fall on same level from slipping, tripping and stumbling with subsequent striking against other object, initial encounter; Y92.009 Unspecified place in unspecified non-institutional (private) residence as the place of occurrence of the external cause
CPT/HCPCS: 72125; 70486; 70450; 99284; 96374; J2270

== ENCOUNTER → 2021-08-11 | Outpatient (CLI) | payer BC ==
[2021-08-11 11:15] LABS: ALT 24 U/L (8-44); AST 23 U/L (13-35); African American GFR (CKD) 108.4 (60.0-200.0); Albumin 4.3 g/dL (3.8-4.9); Albumin/Globulin Ratio 1.79 (1.60-3.17); Alkaline Phosphatase 58 U/L (41-126); BUN/Creat Ratio 29.29 Ratio (12.00-20.00); Blood Urea Nitrogen 20.5 mg/dL (9.0-27.0); Calcium 9.5 mg/dL (8.7-10.3); Carbon Dioxide 24.7 mmol/L (20.0-27.5); Chloride 103 mmol/L (96-109); Chol/HDL Ratio 4.13 Ratio; Globulin 2.4 g/dL (1.6-3.3); Glucose 77 mg/dL (70-110); Non-African American GFR(CKD) 93.5 (60.0-200.0); Potassium 4.1 mmol/L (3.5-5.5); Sodium 140 mmol/L (135-145); Total Protein 6.7 g/dL (6.2-8.2)
[2021-08-11 18:46] LABS: Microalbumin Creatinine Ratio <30 mg/g Creat (0-30); Urine Creatinine 56.2 mg/dL (28.0-217.0)
== END | disposition home or self-care (01) ==
LOC: LABWHC1 08:00
PROVIDERS: ATTEND Internal Medicine Endocrinology, Diabetes & Metabolism
DX: E11.65 Type 2 diabetes mellitus with hyperglycemia (principal)
CPT/HCPCS: 36415; 80053; 80061; 82043; 82570; 83036; 84443

== ENCOUNTER → 2022-06-29 | Outpatient (CLI) | payer BC ==
[2022-06-29 15:57] LABS: ALT 30 U/L (8-44); AST 25 U/L (13-35); African American GFR (CKD) 101.5 (60.0-200.0); Albumin 4.6 g/dL (3.8-4.9); Albumin/Globulin Ratio 2.11 (1.60-3.17); Alkaline Phosphatase 61 U/L (41-126); BUN/Creat Ratio 32.93 Ratio (12.00-20.00); Blood Urea Nitrogen 24.2 mg/dL (9.0-27.0); Calcium 9.8 mg/dL (8.7-10.3); Carbon Dioxide 28.5 mmol/L (20.0-27.5); Chloride 102 mmol/L (96-109); Chol/HDL Ratio 3.82 Ratio; Globulin 2.2 g/dL (1.6-3.3); Glucose 68 mg/dL (70-110); LDL Cholesterol,Calculated 82.4 mg/dL (0.0-131.0); Non-African American GFR(CKD) 87.5 (60.0-200.0); Potassium 4.5 mmol/L (3.5-5.5); Sodium 142 mmol/L (135-145); Total Protein 6.8 g/dL (6.2-8.2)
[2022-06-29 19:29] LABS: Microalbumin Creatinine Ratio <30 mg/g Creat (0-30); Urine Creatinine 48.9 mg/dL (28.0-217.0)
== END | disposition home or self-care (01) ==
LOC: LABWHC1 08:19
PROVIDERS: ATTEND Internal Medicine Endocrinology, Diabetes & Metabolism
DX: E11.65 Type 2 diabetes mellitus with hyperglycemia (principal)
CPT/HCPCS: 36415; 80053; 80061; 82043; 82570; 83036; 84443

== ENCOUNTER → 2023-01-25 | Outpatient (CLI) | payer BC ==
[2023-01-25 13:15] LABS: Microalbumin Creatinine Ratio <29 mg/g Cr (0-30)
[2023-01-25 13:39] LABS: Basophils # (A) 0.06 X 10*3/uL (0.00-0.10); Basophils % (A) 0.7 %; Eosinophils # (A) 0.21 X 10*3/uL (0.04-0.35); Eosinophils % (A) 2.3 %; HGB 14.1 d/dL (12.0-15.0); Lymphocytes # (A) 1.78 X 10*3/uL (0.90-5.00); Lymphocytes % (A) 19.5 %; MCH 29.7 pg (27.0-32.0); MCV 92.6 FL (80.0-97.0); Mean Platelet Volume 10.3 FL (9.5-12.2); Monocytes # (A) 0.64 X 10*3/uL (0.20-1.00); NRBC Per 100 WBC 0 X 10*3/uL (0.00-0.01); Neutrophils # (A) 6.41 X 10*3/uL (1.80-7.70); Neutrophils % (A) 70.1 %; Platelet Count 287 X 10*3/uL (140-440); RBC 4.75 X 10*6/uL (4.10-5.20); RDW 12.9 % (11.5-14.5); WBC 9.14 X 10*3/uL (4.50-10.00)
[2023-01-25 15:50] LABS: ALT 34 U/L (8-44); AST 31 U/L (13-35); Albumin 4.6 d/dL (3.8-4.9); Albumin/Globulin Ratio 2.09 Ratio (1.60-3.17); Alkaline Phosphatase 67 U/L (41-126); BUN/Creat Ratio 33.62 Ratio (12.00-20.00); Blood Urea Nitrogen 26.9 mg/dL (9.0-27.0); Calcium 10.5 mg/dL (8.7-10.3); Carbon Dioxide 26.1 mmol/L (21.6-31.8); Chloride 100 mmol/L (96-109); Chol/HDL Ratio 4.22 Ratio; Globulin 2.2 d/dL (1.6-3.3); Glucose 92 mg/dL (70-110); LDL Cholesterol,Calculated 71.7 mg/dL (0.0-131.0); Potassium 4.9 mmol/L (3.5-5.5); Sodium 140 mmol/L (135-145); Total Bilirubin 0.3 mg/dL (0.3-1.2); Total Protein 6.8 d/dL (6.2-8.2)
[2023-01-25 17:48] LABS: Gliadin AB IgA, Deaminated Negative (Negative); Gliadin AB IgA, Unit 2.9 U/mL; Gliadin AB IgG, Deaminated Negative (Negative); Gliadin AB IgG, Unit <0.4 U/mL
== END | disposition home or self-care (01) ==
LOC: LABWHC1 08:28
PROVIDERS: ATTEND Internal Medicine Endocrinology, Diabetes & Metabolism
DX: E11.65 Type 2 diabetes mellitus with hyperglycemia (principal); K52.9 Noninfective gastroenteritis and colitis, unspecified
CPT/HCPCS: 36415; 80053; 80061; 82043; 82570; 83036; 83516; 84443; 85025

== ENCOUNTER → 2023-09-13 | Outpatient (CLI) | payer BC ==
[2023-09-13 15:55] LABS: ALT 35 U/L (8-44); AST 28 U/L (13-35); Albumin 4.6 g/dL (3.8-4.9); Albumin/Globulin Ratio 1.92 Ratio (1.60-3.17); Alkaline Phosphatase 63 U/L (41-126); BUN/Creat Ratio 36.29 Ratio (12.00-20.00); Blood Urea Nitrogen 25.4 mg/dL (9.0-27.0); Calcium 10.3 mg/dL (8.7-10.3); Carbon Dioxide 30.3 mmol/L (21.6-31.8); Chloride 102 mmol/L (96-109); Globulin 2.4 g/dL (1.6-3.3); Glucose 89 mg/dL (70-110); Potassium 4.7 mmol/L (3.5-5.5); Sodium 144 mmol/L (135-145); Total Bilirubin 0.4 mg/dL (0.3-1.2)
[2023-09-13 18:13] LABS: Microalbumin Creatinine Ratio <26 mg/g Cr (0-30); Urine Creatinine 46.1 mg/dL (28.0-217.0)
== END | disposition home or self-care (01) ==
LOC: LABWHC1 07:56
PROVIDERS: ATTEND Internal Medicine Endocrinology, Diabetes & Metabolism
DX: E11.65 Type 2 diabetes mellitus with hyperglycemia (principal)
CPT/HCPCS: 36415; 80053; 80061; 82043; 82570; 83036; 84443

== ENCOUNTER → 2024-04-17 | Outpatient (CLI) | payer BC ==
[2024-04-17 15:44] LABS: ALT 36 U/L (8-44); AST 36 U/L (13-35); Albumin 4.3 g/dL (3.8-4.9); Albumin/Globulin Ratio 1.95 Ratio (1.60-3.17); Alkaline Phosphatase 62 U/L (41-126); BUN/Creat Ratio 28.88 Ratio (12.00-20.00); Blood Urea Nitrogen 23.1 mg/dL (9.0-27.0); Calcium 9.8 mg/dL (8.7-10.3); Carbon Dioxide 25.5 mmol/L (21.6-31.8); Chloride 101 mmol/L (96-109); Chol/HDL Ratio 3.66 Ratio; Globulin 2.2 g/dL (1.6-3.3); Glucose 100 mg/dL (70-110); LDL Cholesterol,Calculated 59.6 mg/dL (0.0-131.0); Potassium 5.1 mmol/L (3.5-5.5); Sodium 138 mmol/L (135-145); Total Bilirubin 0.4 mg/dL (0.3-1.2); Total Protein 6.5 g/dL (6.2-8.2)
[2024-04-17 21:34] LABS: Microalbumin Creatinine Ratio <23 mg/g Cr (0-30); Urine Creatinine 52.2 mg/dL (28.0-217.0)
== END | disposition home or self-care (01) ==
LOC: LABWHC1 08:19
PROVIDERS: ATTEND Internal Medicine Endocrinology, Diabetes & Metabolism
DX: E11.65 Type 2 diabetes mellitus with hyperglycemia (principal)
CPT/HCPCS: 36415; 80053; 80061; 82043; 82570; 83036; 84443

== ENCOUNTER → 2024-10-30 | Outpatient (CLI) | payer BC ==
[2024-10-30 10:42] LABS: Chol/HDL Ratio 3.87 Ratio
[2024-10-30 10:43] LABS: ALT 26 U/L (8-44); AST 23 U/L (13-35); Albumin 4.2 g/dL (3.8-4.9); Albumin/Globulin Ratio 1.83 Ratio (1.60-3.17); Alkaline Phosphatase 68 U/L (41-126); BUN/Creat Ratio 50.43 Ratio (12.00-20.00); Blood Urea Nitrogen 35.3 mg/dL (9.0-27.0); Calcium 10.1 mg/dL (8.7-10.3); Carbon Dioxide 24.2 mmol/L (21.6-31.8); Chloride 104 mmol/L (96-109); Globulin 2.3 g/dL (1.6-3.3); Glucose 162 mg/dL (70-110); LDL Cholesterol,Calculated 87.8 mg/dL (0.0-131.0); Potassium 4.7 mmol/L (3.5-5.5); Sodium 138 mmol/L (135-145); Total Bilirubin 0.4 mg/dL (0.3-1.2); Total Protein 6.5 g/dL (6.2-8.2)
[2024-10-30 19:47] LABS: Microalbumin Creatinine Ratio <35 mg/g Cr (0-30); Urine Creatinine 34.3 mg/dL (28.0-217.0)
== END | disposition home or self-care (01) ==
LOC: LABWHC1 07:22
PROVIDERS: ATTEND Internal Medicine Endocrinology, Diabetes & Metabolism
DX: E11.65 Type 2 diabetes mellitus with hyperglycemia (principal)
CPT/HCPCS: 36415; 80053; 80061; 82043; 82570; 83036; 84443